=== PATIENT | female | born 1950 | race Caucasian/White ===

== ENCOUNTER → 2016-03-11 | Outpatient (CLI) | payer OTHER ==
--- NOTE | 2016-03-11 17:20 | MA ---
Screening Digital Mammogram Clinical Indications: Routine screening. Technique: Standard cephalocaudal and mediolateral oblique projections are obtained. This examinati on is processed by the [employer] computer aided detection system. Comparison: October 24, 2013; August 04, 2010; and studies dating back to November 23, 2007. Breast density: B; There are scattered areas of fibroglandular density. Findings: CAD was reviewed. No suspicious findings are identified. There are no new masses, new clus ters of microcalcifications, or significant axillary lymphadenopathy. Impression: Negative mammogram. BI-RADS 1. Recommendation: Routine screening is recommended in one year. [facility] will send a result letter to the patient. Negative mammography should not preclude additional workup of a clinically suspicious finding. The patient's information is entered into a reminder system with a target due date for her next mammo gram.
== END ==
LOC: FIMAGING 13:12
DX: Z12.31 Encounter for screening mammogram for malignant neoplasm of breast (principal)
CPT/HCPCS: G0202

== ENCOUNTER 2016-06-18 09:49 | Emergency (ER) | payer OTHER ==
[2016-06-18 09:59] VITALS: O2SAT 96
--- NOTE | 2016-06-18 10:01 | EDPHY ---
HPI/HX/ROS/PE/MDM Narrative: CHIEF COMPLAINT: Disorientation HISTORY OF PRESENT ILLNESS: This patient is a 66 year old woman, arriving by private vehicle, presenting with acute disorientation. She woke her son up this morning, stating "I think I am having a stroke". She reports feeling disoriented and confused. She does not know what day of the week it is. She does not remember what she did 10 minutes ago or how she was feeling this morning. Her son last saw her normal last night before bed. Her saw her acting normal and reading at 0700 this morning and briefly at 0845 this morning when she came in from gardening before he left for work. He felt she was in her normal state of health at these interactions. She called her at 0905, complaining of disorientation and the symptoms, as described above. She denies headache, but reports that "her head feels swirly". She denies difficulty speaking or forming words, extremity weakness or paresthesia. History is limited secondary to patient's condition. REVIEW OF SYSTEMS: Review of systems is slightly limited secondary to the patient's disorientation. However she and her family deny fevers or chills, cough, vomiting, diarrhea. Patient denies any headache, chest pain, abdominal pain, extremity pain, lightheadedness or fainting. PAST MEDICAL HISTORY: Denies history of hypertension, diabetes, arrhythmias, coronary disease, or CVA. She does not believe she is on any medications. SOCIAL HISTORY: . Her son is at bedside. VITAL SIGNS: Reviewed by me GENERAL: Well-developed, well-nourished, resting comfortably in no respiratory distress. Pleasant. HEENT: Atraumatic. Eyes: No icterus, no injection. PERRL, EOMI. Mouth: moist mucous membranes. No erythema or lesions. Neck: supple with no adenopathy. LUNGS: Clear to auscultation bilaterally, no wheezes, rhonchi or rales. CARDIAC: Regular rate and rhythm, no rubs, murmurs or gallops. ABDOMEN: Soft, nontender, nondistended, bowel sounds normal. BACK: No CVA tenderness. EXTREMITIES: No trauma. No edema. Range of motion is normal throughout. NEURO: Alert. Oriented to place and person. She does not know what day, month, or year it is. Cranial nerves II-XII intact. Normal motor and sensation of all four extremities. Normal identification of pen, shoe, hat. Normal identification of her son, who is at bedside. Fluid speech. SKIN: Warm and dry, no rash. PSYCHIATRIC: Normal mentation, no agitation. Portions of this note were transcribed by a medical technologist blood bank. I personally performed a history, physical exam, medical decision making, and confirmed accuracy of information the transcribed note. ED Course: 1000: Patient is acutely disoriented. Last seen normal last night before bed. She is oriented to person and place only. She has no other neurologic deficits on exam. I have classified this patient as a stroke alert. BGL and creatinine is normal on ISTAT. Patient has departed to head CT. 12-lead EKG interpreted by myself demonstrates normal sinus rhythm, rate 62. See formal report in [employer] for interpretation. Noncontrast Head CT per the radiologist shows no acute findings. I consulted with [facility] neurologist, Dr Yun, at 1015. Dr. Iyer has low suspicion for CVA. Recommends stopping the stroke alert and workup the patient for altered mental status. Transient global amnesia is prominent on the list of differentials. Brain MRI ordered. 1230: Patient is still disoriented. Discussed with the patient and family, plan for hospital admission. I consulted with the hospitalist service. Dr. Burns accepts admission. MRI results pending. Brain MRI per the radiologist demonstrates white matter disease, but no evidence of acute infarct. Patient was evaluated in the emergency department by Dr. Burns. Please see her notations. Evidently the patient and her family a prefer not to be discharged. Consultation was held between Dr. Burns and Dr. Nicholson from Neurology. Plan for a carotid ultrasound to be performed while in the emergency department. MDM: After the history was obtained and physical exam performed, the following differential for the patient's altered mental status was considered included but was not limited to hypoglycemia, electrolyte disturbances, intracranial hemorrhage, tumor, drug or alcohol intoxication, stroke, or TIA, or transient global amnesia. - Data Points Laboratory Results: Laboratory Results 06/18/16 09:56 06/18/16 09:56 Medications Given: Discontinued Medications Thiamine HCl 100 mg/ Sodium (Chloride) 101 mls @ 202 mls/hr IV DAILY DEANDRA Stop: 12/15/16 14:29 Last Admin: 06/18/16 16:30 Dose: Not Given General Initial Vital Signs: Initial Vital Signs Temperature (C) 36.8 C 06/18/16 09:55 Heart Rate 74 06/18/16 09:55 Respiratory Rate 16 06/18/16 09:55 Blood Pressure 173/106 H 06/18/16 09:55 O2 Sat (%) 96 06/18/16 09:55 O2 Delivery Mode Room Air Allergies/Adverse Reactions: No Known Allergies Allergy (Unverified 05/09/11 10:37) Home Medications: Medication Instructions Recorded Aspirin [Aspirin EC] 81 mg PO DAILY #30 tablet. 06/18/16 Departure - Departure Disposition: Home, Routine, Self-Care Clinical Impression: Disoriented to time, Disorientation Condition: Fair Instructions: Altered Mental Status (ED), Transient Global Amnesia (ED) Additional Instructions: Begin taking 81 mg aspirin once daily until follow up with neurologist. Return to the emergency department if you develop worsening symptoms of confusion, speech difficulties, word-finding difficulties, numbness or tingling in her arms or legs, weakness, or other concerns. Follow up with Dr. Nicholson as directed. Please contact him and be seen as soon as possible. Referrals: Marlene Morton MD [Primary Care Provider] - As per Instructions Jon Nicholson MD [Medical Doctor] - follow up in 2 weeks (2 weeks for EEG) Prescriptions: Aspirin [Aspirin EC] 81 mg PO DAILY #30 tablet. Report Scribed for: Tracey Roche Report Scribed by: Annette Ramirez Date of Report: 06/18/16 Time of Report: 10:03
[2016-06-18 10:10] LABS: % IMMATURE GRANULYOCYTES 0.2 % (0.0-1.1); ABSOLUTE IMMATURE GRANULOCYTES 0.01 10^3/uL (0.00-0.10); ADD DIFF? NO; ADD MORPH? NO; ADD SCAN? NO; ATYPICAL LYMPHOCYTE FLAG 10 (0-99); FRAGMENT RBC FLAG 0 (0-99); HEMATOCRIT 44.5 % (38.0-47.0); HEMOGLOBIN 15.7 g/dL (12.6-16.3); LEFT SHIFT FLG 0 (0-99); LIPEMIA HEMOLYSIS FLAG 90 (0-99); MEAN CELL HEMOGLOBIN 31.8 pg (27.9-34.1); MEAN CELL HEMOGLOBIN CONCENTR. 35.3 g/dL (32.4-36.7); MEAN CELL VOLUME 90.1 fL (81.5-99.8); MEAN PLATELET VOLUME 8.9 fL (8.7-11.7); PLATELET CLUMPS FLAG 0 (0-99); PLATELET COUNT 250 10^3/uL (150-400); RED BLOOD CELL COUNT 4.94 10^6/uL (4.18-5.33); RED CELL DISTRIBUTION WIDTH 12.6 % (11.5-15.2)
--- NOTE | 2016-06-18 10:15 | CPEKG ---
Heart Rate: 62 RR Interval: 968 P-R Interval: 172 QRSD Interval: 84 QT Interval: 440 QTC Interval: 447 P [place]: 52 QRS [place]: 32 T Wave [place]: -18 EKG Severity - BORDERLINE ECG - EKG Impression: SINUS RHYTHM EKG Impression: BORDERLINE T WAVE ABNORMALITIES Electronically Signed By: Tracey Roche 18-Jun-2016 16:53:16
[2016-06-18 10:19] LABS: INR 0.98 (0.83-1.16); PROTIME(PATIENT) 12.9 SEC (12.0-15.0)
[2016-06-18 10:27] LABS: ANION GAP 13 mEq/L (8-16); CALCIUM 9.9 mg/dL (8.5-10.4); CARBON DIOXIDE 23 mEq/l (22-31); CHLORIDE 108 mEq/L (97-110); CREATININE 0.9 mg/dL (0.6-1.0); GLOMERULAR FILTRATION RATE > 60; GLUCOSE 97 mg/dL (70-100); POTASSIUM 3.8 mEq/L (3.5-5.2); SODIUM 144 mEq/L (134-144)
[2016-06-18 10:39] LABS: TROPONIN I < 0.012 ng/mL (0-0.034)
[2016-06-18] MEDS ORDERED: GADOBUTROL 10 ML VIAL IVP ONE (11:20)
[2016-06-18] MEDS ORDERED: ACETAMINOPHEN 325 MG TAB PO PRN (14:10)
[2016-06-18] MEDS ORDERED: ONDANSETRON 4 MG/2 ML VIAL IVP PRN (14:10)
[2016-06-18] MEDS ORDERED: ONDANSETRON DISINTEGRATING 4 MG TAB PO PRN (14:10)
[2016-06-18] MEDS ORDERED: THIAMINE HCL 100 MG in NS 100 ML IV SCH (14:30)
[2016-06-18 14:53] LABS: COLOR PALE YELLOW; LEUKOCYTE ESTERASE,URINE NEGATIVE (NEGATIVE); NITRITE,URINE NEGATIVE (NEGATIVE)
--- NOTE | 2016-06-18 15:48 | GHP ---
[f rep st] HISTORY AND PHYSICAL DATE OF ADMISSION: 06/18/2016 CHIEF COMPLAINT: Transient global amnesia. HISTORY OF PRESENT ILLNESS: The patient is a 66-year-old female with no significant past medical history, presenting with sudden onset of memory loss and confusion this morning. Some of the history is provided by her and son, Agusto. saw her gardening this morning. She brought sung in to put in a vase. She appeared normal to him at that time, and he left for work. She called him and was not making sense and saying that she felt confused. She denies any slurred speech, focal weakness. No fevers, chills or sweats. No nausea, vomiting, or diarrhea. No headaches. No numbness or tingling. Right now, she says she feels swirly in her head and disoriented. The last event she remembers yesterday as being at her friend [place] until about 7 p.m. When prompted by her , she does recall watching [employer] TV series on TV. Her states there have been increased stressors as her best friend's 22- year-old son has been missing for 11 days and she has been involved in the search. She also missed a shift last week at [employer], because she forgot. In the Emergency Room, the patient cannot recall the president, year, or date. She knows the month. She is supposed to start a new job at [employer] tomorrow and she does not remember being hired 3 weeks ago. REVIEW OF SYSTEMS: A complete 10-point Review of Systems is negative except as noted in HPI. PAST MEDICAL HISTORY: Episode of bradycardia and hypertension for which she was admitted to [facility] last year, intermittent vertigo. PAST SURGICAL HISTORY: 1. Cholecystectomy. 2. Tonsillectomy. FAMILY HISTORY: 1. Mother with TIA. 2. Father with a heart attack at age 45 and cardiac bypass. SOCIAL HISTORY: 1. Lives in [place], , her son and grandson live with them, works at [employer], supposed to start a new job at [employer] tomorrow. 2. Alcohol 1 to 3 glasses of wine 3 to 4 times a week. Stated she had a glass last night. 3. Denies any illicit drugs or tobacco. ALLERGIES: No known drug allergies. MEDICATIONS: None. No herbal or [id number]-bbqkufz medicines. PHYSICAL EXAMINATION: VITAL SIGNS: Temperature 36.8, blood pressure 173/106, at admission, now 162/73, heart rate 70s, respirations 16, 96% on room air. GENERAL: Patient is sitting up in bed, no acute distress. Smiling. HEENT: PERRLA. EOMI. Oropharynx clear. CV: Regular rate and rhythm. No murmurs, gallops, or rubs. LUNGS: Clear to auscultation bilaterally. ABDOMEN: Soft, nontender, nondistended. Positive bowel sounds. : No suprapubic or CVA tenderness. MUSCULOSKELETAL: 5/5 upper and lower extremity strength. NEURO: CN 2 through 12 intact. No pronator drift. Normal sensation to touch. Normal cerebellar function, xkuceq-pl-mewd testing. PSYCH: Alert to month and hospital, not year, date or president. She is not recalling anything since yesterday evening. LABS: WBC 4, hemoglobin 15, hematocrit 44, platelets 250. Coags are within normal. Sodium 144, potassium 3.8, chloride 108, carbon dioxide 23, anion gap 13, BUN 17, creatinine 0.9. Troponin less than 0.012. A TSH is pending. Urine tox and urinalysis are pending. EKG personally reviewed by me. Normal sinus rhythm. ST flattening in V4 through V6. Chest x-ray personally reviewed by me. No edema, effusion or evidence of opacity. Head CT negative for hemorrhage or other acute abnormality. Brain MRI: Negative for hemorrhage, mass lesion or acute cortical ischemia. Rather extensive white matter T2 hyperintensity lesions bilaterally related to small vessel disease. ASSESSMENT AND PLAN: 1. Transient global amnesia. Differential is broad including electrolyte abnormalities, TIA, stroke, infection. She is afebrile without leukocytosis. Denies any infectious symptoms. CT head and MRI brain are negative with normal neuro exam. Normal electrolytes. TSH, UA and U tox are pending. I could consider stress induced as has recently been hired for a new job, her best friend's son has gone missing in the last 2 weeks. The patient was evaluated by Nicholas Castillo and had low suspicion for stroke. I spoke with Dr. Nicholson who suggested carotid U/S and she can FU in clinic for EEG. 2. Accelerated hypertension. Diastolic was elevated, but now better, suspect secondary to stress. BP check outpatient. 3. DVT prophylaxis, ambulatory. 4. Patient warrants observation admission given transient global amnesia. Awaiting call from Neurology. /[id number]/MODL MTDD
[2016-06-18 17:22] VITALS: BP 157/90; PULSE 63; RESP 18; TEMP 98.8
--- NOTE | 2016-06-18 17:47 | GDS ---
[f rep st] DISCHARGE SUMMARY DISCHARGE DIAGNOSES: 1. Transient global amnesia. 2. Hypertension. HPI: The patient is a 66-year-old female, with no significant past medical history, presenting with sudden onset of memory loss and confusion this morning. Please see full H and P dated today for full details. ASSESSMENT AND PLAN: 1. Transient global amnesia: Differential includes seizure, TIA, infection, or electrolyte abnormality. The patient had a negative CT head, brain MRI, and carotid ultrasound. I did speak with Dr. Nicholson with Neurology, who will see patient as an outpatient and do an EEG. Another consideration would be stress induced given increased stressors with work and a friend's situation. UA was negative, and there was no evidence of electrolyte abnormality. 2. Accelerated hypertension: Diastolic was greater than 100 here, but now 70. The patient has been admitted to [facility] prior with hypertension, but she is not on any medication. I recommend that she have a followup blood pressure with her PCP. 3. Small-vessel disease: This was demonstrated on brain MRI. I would recommend starting a low-dose aspirin. DISPOSITION: The patient is stable for discharge. NEW MEDICATIONS: Baby aspirin. FOLLOWUP: Dr. Nicholson with Neurology for EEG. /[id number]/MODL MTDD
== END 2016-06-18 17:29 | disposition home or self-care (01) ==
LOC: UNDOADMOB 12:33
DX: G45.4 Transient global amnesia (principal)
CPT/HCPCS: 70450; 70553; 71010; 93005; 93880; 99285; A9585; J3411; 82947-QW

== ENCOUNTER → 2016-07-12 | Outpatient (CLI) | payer OTHER ==
--- NOTE | 2016-07-13 10:20 | CPEEG ---
[f rep st] ELECTROENCEPHALOGRAM 4-HOUR VIDEO ELECTROENCEPHALOGRAM. DATE OF STUDY: 07/12/2016 DATE OF INTERPRETATION: 07/12/2016. INTERPRETATION: This 4-hour video EEG recording is normal. There were no potentially epileptogenic abnormalities present in the awake or sleep recordings. During the video EEG monitoring session, t he patient did not have any clinical events. REPORT: This 4-hour video EEG contains 9 Hz alpha rhythm to the posterior head regions. There was no abnormal activation at rest, during photic stimulation or hyperventilation. The patient became d rowsy and fell asleep during the study. There was no abnormal activation during drowsiness, sustain ed sleep, or during times of arousal. During the EEG monitoring session, the patient did not have a ny clinical events. /[id number]/MODL
== END ==
LOC: FCPNEURO 08:33
PROVIDERS: ATTEND Psychiatry & Neurology Neurology
DX: G45.4 Transient global amnesia (principal)

== ENCOUNTER 2016-08-02 11:20 | Observation (INO) | payer OTHER ==
--- NOTE | 2016-08-02 11:32 | CPEKG ---
Heart Rate: 53 RR Interval: 1132 P-R Interval: 164 QRSD Interval: 92 QT Interval: 468 QTC Interval: 440 P [place]: 38 QRS [place]: 17 T Wave [place]: 49 EKG Severity - NORMAL ECG - EKG Impression: SINUS RHYTHM Electronically Signed By: Rupal Guzmán 02-Aug-2016 15:43:43
[2016-08-02] MEDS ORDERED: NS 500 ML IV ONE (11:37)
[2016-08-02] MEDS ORDERED: ASPIRIN 81 MG CHEWABLE TAB PO ONE (11:37)
[2016-08-02 11:45] LABS: ADD DIFF? NO; ADD MORPH? NO; ADD SCAN? NO; ATYPICAL LYMPHOCYTE FLAG 10 (0-99); FRAGMENT RBC FLAG 0 (0-99); HEMOGLOBIN 14.6 g/dL (12.6-16.3); LEFT SHIFT FLG 0 (0-99); LIPEMIA HEMOLYSIS FLAG 90 (0-99); MEAN CELL HEMOGLOBIN 31.9 pg (27.9-34.1); MEAN CELL HEMOGLOBIN CONCENTR. 34.8 g/dL (32.4-36.7); MEAN CELL VOLUME 91.7 fL (81.5-99.8); PLATELET CLUMPS FLAG 10 (0-99); PLATELET COUNT 238 10^3/uL (150-400); RED BLOOD CELL COUNT 4.58 10^6/uL (4.18-5.33); RED CELL DISTRIBUTION WIDTH 12.9 % (11.5-15.2)
[2016-08-02 11:53] LABS: APTT 29.4 SEC (23.0-38.0); INR 1.05 (0.83-1.16); PROTIME(PATIENT) 13.6 SEC (12.0-15.0)
--- NOTE | 2016-08-02 11:57 | EDPHY ---
H & P Time Seen by Provider: 08/02/16 11:37 HPI/ROS: HPI Chest pain, jaw pain, sweating. 66-year-old female by private vehicle from work. She was standing at work. She was not under any strenuous activity, she reports that 0.5 hour prior to arrival she suddenly started sweating profusely. This was associated with a vague aching and discomfort in her right chest which radiated to her right shoulder blade. This was then followed by pain in her right jaw. This lasted about 15-20 minutes and then resolved. She feels much better now that she is at the hospital. She does not have a prior history of coronary artery disease. She has had episodes of symptoms similar to this in the past but not nearly as severe. She had some mild associated shortness of breath with this but this has resolved as well. ROS: Constitutional: No fever, no chills. As above. Eyes: No discharge. No changes in vision. ENT: No sore throat. No nasal congestion or rhinorrhea. Respiratory: No cough. As above. Cardiac: As above, no palpitations. Gastrointestinal: No abdominal pain, no vomiting, no diarrhea. Genitourinary: No hematuria. No dysuria or increased frequency with urination. Musculoskeletal: No back pain. As above. Skin: No rashes. Neurological: No headache. No focal weakness or altered sensation. Past medical history: Transient global amnesia, bradycardia, cholecystectomy. Social history: Nonsmoker. Here by herself. Physical Exam: General Appearance: Alert, no distress. Moderately obese. This patient is responding to questions appropriately and in full sentences. This patient appears well-hydrated and well-nourished. Eyes: Pupils equal and round no pallor or injection. No lid edema, erythema or injection. Respiratory: There are no retractions, lungs are clear to auscultation with good air movement bilaterally. Cardiovascular: Regular rate and rhythm. No murmur. Gastrointestinal: Abdomen is soft and nontender, no masses, bowel sounds normal. No focal tenderness at McBurney's point. No Sandoval sign. Neurological: Motor sensory function is grossly intact. Cranial nerves are normal. Gait is normal. Skin: Warm and dry, no rashes. Musculoskeletal: Neck is supple and nontender. Extremities are symmetrical. All joints range without pain or impingement. Psychiatric: No agitation. No depression. Database: EKG: EKG time is 11:29 a.m.; EKG shows a narrow complex normal sinus rhythm with a ventricular rate of 53. The RI, QRS, QT intervals are within normal limits. There are no ST-T wave changes indicative of ischemic or injury pattern. No evidence of right heart strain. Interpreted by me. Imaging: Chest x-ray PA and lateral; the cardiac mediastinal silhouette is unremarkable. No evidence of infiltrate or pneumothorax. No acute cardiopulmonary disease process noted. Interpreted by me. Procedures: Emergency department course: IV placed. She was placed on a dust mixer. She was given 324 mg of chewed aspirin. EKG and chest x-ray obtained. Plan for observation admission discussed with her. Appropriate blood work ordered. 12:10 p.m., discussed case with hospitalist. Patient accepted for observation telemetry admission to Dr. Kristina Ramos. 12:15 p.m., re-evaluated patient. Chest pain-free. Resting comfortably. Results of cardiac workup discussed with her. Plan for admission to telemetry observation reviewed. All of her questions were answered. She was admitted in stable and improved condition. Differential Diagnosis: The differential diagnosis on this patient includes but is not limited to acute coronary syndrome, anxiety reaction, myocardial infarction. This represents a partial list of diagnoses considered. These considerations are based on history , physical exam, past history, reassessment and diagnostic testing. Smoking Status: Never smoked Constitutional: Initial Vital Signs Temperature (C) 36.4 C 08/02/16 11:27 Heart Rate 62 08/02/16 11:27 Respiratory Rate 18 08/02/16 11:27 Blood Pressure 166/92 H 08/02/16 11:27 O2 Sat (%) 96 08/02/16 11:27 O2 Delivery Mode Room Air Allergies/Adverse Reactions: No Known Allergies Allergy (Verified 08/02/16 11:27) Home Medications: Medication Instructions Recorded Aspirin [Aspirin EC] 81 mg PO DAILY #30 tablet. 06/18/16 Medical Decision Making - Data Points Laboratory Results: Laboratory Results 08/02/16 11:36 08/02/16 11:36 08/02/16 08/02/16 08/02/16 11:36 11:36 11:36 WBC 5.34 10^3/uL 10^3/uL (3.80-9.50) RBC 4.58 10^6/uL 10^6/uL (4.18-5.33) Hgb 14.6 g/dL g/dL (12.6-16.3) Hct 42.0 % % (38.0-47.0) MCV 91.7 fL fL (81.5-99.8) MCH 31.9 pg pg (27.9-34.1) MCHC 34.8 g/dL g/dL (32.4-36.7) RDW 12.9 % % (11.5-15.2) Plt Count 238 10^3/uL 10^3/uL (150-400) MPV 9.0 fL fL (8.7-11.7) Neut % (Auto) 45.3 % % (39.3-74.2) Lymph % (Auto) 44.2 % % (15.0-45.0) [place] % (Auto) 8.6 % % (4.5-13.0) Eos % (Auto) 1.5 % % (0.6-7.6) Baso % (Auto) 0.4 % % (0.3-1.7) Nucleat RBC Rel Count 0.0 % % (0.0-0.2) Absolute Neuts (auto) 2.42 10^3/uL 10^3/uL (1.70-6.50) Absolute Lymphs (auto) 2.36 10^3/uL 10^3/uL (1.00-3.00) Absolute Monos (auto) 0.46 10^3/uL 10^3/uL (0.30-0.80) Absolute Eos (auto) 0.08 10^3/uL 10^3/uL (0.03-0.40) Absolute Basos (auto) 0.02 10^3/uL 10^3/uL (0.02-0.10) Absolute Nucleated RBC 0.00 10^3/uL 10^3/uL (0-0.01) Immature Gran % 0.0 % % (0.0-1.1) Immature Gran # 0.00 10^3/uL 10^3/uL (0.00-0.10) PT 13.6 SEC SEC (12.0-15.0) INR 1.05 (0.83-1.16) APTT 29.4 SEC SEC (23.0-38.0) Sodium 138 mEq/L mEq/L (134-144) Potassium 4.0 mEq/L mEq/L (3.5-5.2) Chloride 107 mEq/L mEq/L (97-110) Carbon Dioxide 19 mEq/l L mEq/l (22-31) Anion Gap 12 mEq/L mEq/L (8-16) BUN 23 mg/dL mg/dL (7-23) Creatinine 0.8 mg/dL mg/dL (0.6-1.0) Estimated GFR > 60 Glucose 105 mg/dL H mg/dL (70-100) Calcium 9.5 mg/dL mg/dL (8.5-10.4) Creatine Kinase 102 IU/L IU/L (0-156) CK-MB (CK-2) Fraction 0.83 ng/mL ng/mL (0-3.19) Troponin I < 0.012 ng/mL ng/mL (0-0.034) Medications Given: Discontinued Medications Aspirin (Aspirin) 324 mg PO EDNOW ONE Stop: 08/02/16 11:38 Last Admin: 08/02/16 11:47 Dose: 324 mg Departure - Departure Disposition: [facility] Inpatient Acute Clinical Impression: Chest pain Referrals: Marlene Morton MD [Primary Care Provider] - As per Instructions
[2016-08-02 12:02] LABS: ANION GAP 12 mEq/L (8-16); CALCIUM 9.5 mg/dL (8.5-10.4); CARBON DIOXIDE 19 mEq/l (22-31); CHLORIDE 107 mEq/L (97-110); CREATININE 0.8 mg/dL (0.6-1.0); GLOMERULAR FILTRATION RATE > 60; GLUCOSE 105 mg/dL (70-100); SODIUM 138 mEq/L (134-144)
[2016-08-02 12:10] LABS: CREATINE KINASE-MB FRACTION 0.83 ng/mL (0-3.19); TROPONIN I < 0.012 ng/mL (0-0.034)
[2016-08-02] MEDS ORDERED: ONDANSETRON DISINTEGRATING 4 MG TAB PO PRN (12:21)
[2016-08-02] MEDS ORDERED: ONDANSETRON 4 MG/2 ML VIAL IVP PRN (12:21)
[2016-08-02] MEDS ORDERED: ACETAMINOPHEN 325 MG TAB PO PRN (12:21)
--- NOTE | 2016-08-02 13:08 | PDCPHP ---
History and Physical Chief Complaint: chest pain, diaphoresis - History of Present Illness This is a 66 yo,White,F 66 yo female with no significant past medical history, but father with h/o PA at age 45, presents to ED with chest pressure and diaphoresis. She was working at a [employer] when she suddenly felt hot, flushed and sweaty. She endorsed chest pressure with some radiation to her arms. No SOB. She is a non- smoker. She denies a h/o hypertension, though review of records reveal multiple elevated BP's and I suspect she has undiagnosed hypertension. She was evaluated for chest pain in 12/2015 with a low probability exercise stress test. She is chest pain free and her symptoms are resolved at the time of my evaluation. Cardiac Risk Factors: hypertension (>140/90), family history of premature CAD, age > 65 History Information - Allergies/Home Medication List Allergies/Adverse Reactions: No Known Allergies Allergy (Verified 08/02/16 11:27) I have personally reviewed and updated: family history, medical history, social history, surgical history - Past Medical History Additional medical history: intermittent vertigo, h/o global amnesia, ? hypertension - Surgical History Reports: cholecystectomy Additional surgical history: tonsillectomy - Family History Positive for: father with history of CAD younger than 55 - Social History Smoking Status: Never smoked Alcohol Use: Occasionally Drug Use: None Additional social history: , works at [employer] at the [employer]. Review of Systems ROS: 10pt was reviewed & negative except for what was stated in HPI & below RUPAL Risk Evaluation age greater or equal to 65: yes greater or equal to 3 CAD risk factors: no known CAD(stenosis greater or eqaul to 50%): no ASA use in past 7 days: yes severe angina(greater or equal to 2 episodes in 24hrs): no EKG ST changes greater or equal to 0.5mm: no positive cardiac marker: no Total Score: 2 RUPAL Score: 8.3% risk Physical Exam Temp Pulse Resp BP Pulse Ox 36.4 C 62 18 166/92 H 96 08/02/16 11:27 08/02/16 11:27 08/02/16 11:27 08/02/16 11:27 08/02/16 11:27 Constitutional: no apparent distress Eyes: PERRL Ears, Nose, Mouth, Throat: moist mucous membranes Cardiovascular: regular rate and rhythym, no murmur, rub, or gallop Respiratory: no respiratory distress, clear to auscultation Gastrointestinal: normoactive bowel sounds, soft, non-tender abdomen Skin: warm Musculoskeletal: full muscle strength Neurologic: AAOx3 Psychiatric: interacting appropriately Lab Data & Imaging Review 08/02/16 11:36 08/02/16 11:36 WBC 5.34 10^3/uL (3.80-9.50) 08/02/16 11:36 RBC 4.58 10^6/uL (4.18-5.33) 08/02/16 11:36 Hgb 14.6 g/dL (12.6-16.3) 08/02/16 11:36 Hct 42.0 % (38.0-47.0) 08/02/16 11:36 MCV 91.7 fL (81.5-99.8) 08/02/16 11:36 MCH 31.9 pg (27.9-34.1) 08/02/16 11:36 MCHC 34.8 g/dL (32.4-36.7) 08/02/16 11:36 RDW 12.9 % (11.5-15.2) 08/02/16 11:36 Plt Count 238 10^3/uL (150-400) 08/02/16 11:36 MPV 9.0 fL (8.7-11.7) 08/02/16 11:36 Neut % (Auto) 45.3 % (39.3-74.2) 08/02/16 11:36 Lymph % (Auto) 44.2 % (15.0-45.0) 08/02/16 11:36 [place] % (Auto) 8.6 % (4.5-13.0) 08/02/16 11:36 Eos % (Auto) 1.5 % (0.6-7.6) 08/02/16 11:36 Baso % (Auto) 0.4 % (0.3-1.7) 08/02/16 11:36 Nucleat RBC Rel Count 0.0 % (0.0-0.2) 08/02/16 11:36 Absolute Neuts (auto) 2.42 10^3/uL (1.70-6.50) 08/02/16 11:36 Absolute Lymphs (auto) 2.36 10^3/uL (1.00-3.00) 08/02/16 11:36 Absolute Monos (auto) 0.46 10^3/uL (0.30-0.80) 08/02/16 11:36 Absolute Eos (auto) 0.08 10^3/uL (0.03-0.40) 08/02/16 11:36 Absolute Basos (auto) 0.02 10^3/uL (0.02-0.10) 08/02/16 11:36 Absolute Nucleated RBC 0.00 10^3/uL (0-0.01) 08/02/16 11:36 Immature Gran % 0.0 % (0.0-1.1) 08/02/16 11:36 Immature Gran # 0.00 10^3/uL (0.00-0.10) 08/02/16 11:36 PT 13.6 SEC (12.0-15.0) 08/02/16 11:36 INR 1.05 (0.83-1.16) 08/02/16 11:36 APTT 29.4 SEC (23.0-38.0) 08/02/16 11:36 Sodium 138 mEq/L (134-144) 08/02/16 11:36 Potassium 4.0 mEq/L (3.5-5.2) 08/02/16 11:36 Chloride 107 mEq/L (97-110) 08/02/16 11:36 Carbon Dioxide 19 mEq/l (22-31) L 08/02/16 11:36 Anion Gap 12 mEq/L (8-16) 08/02/16 11:36 BUN 23 mg/dL (7-23) 08/02/16 11:36 Creatinine 0.8 mg/dL (0.6-1.0) 08/02/16 11:36 Estimated GFR > 60 08/02/16 11:36 Glucose 105 mg/dL (70-100) H 08/02/16 11:36 Calcium 9.5 mg/dL (8.5-10.4) 08/02/16 11:36 Creatine Kinase 102 IU/L (0-156) 08/02/16 11:36 CK-MB (CK-2) Fraction 0.83 ng/mL (0-3.19) 08/02/16 11:36 Troponin I < 0.012 ng/mL (0-0.034) 08/02/16 11:36 Visualized and Interpreted Chest x-ray results: Yes Chest X-Ray results: no infiltrate EKG Interpretation: Positive for: normal sinsus rhythm Assessment and Plan Assessment: Chest pain (Acute) - onset at rest, atypical. Low suspicion for ACS, RUPAL 2. Cardiac risk factors include age, htn (not previously diagnosed), father with PHD. She had low probability exercise stress test in 12/2015. EKG is non- ischemic. Initial trop negative. Query if her symptoms were related to a hot flash. -trend trop -repeat EKG to eval for evolutionary changes -ASA, BB -check lipid status -will discuss further stress testing with Cards in am -check TSH Hypertension - Most of her BP's are elevated on prior visits. -start Metoprolol Full code DVT PPLX - SCD's, consider Lovenox if prolonged hospitalization Dispo - obs Plan: The patient will be placed in observation due to concerns for Acute Coronary Syndrome. * continuous telemetry to monitor for ST segment changes * monitor vital signs every 4 hours * morphine sulfate IV and nitroglycerin sublingual as needed for chest pain * repeat EKG in 6 hours to monitor for changes that would suggest ischemia or infarction * repeat EKG as needed for recurrent chest pain * repeat troponin in 4-6 hours after onset of chest pain * Arrange for [inpatient][outpatient]stress test once chest pain is resolved, repeat troponin and EKG are negative, and the patient is symptom free for greater than 6 hours from the onset of pain * If the patient develops dynamic EKG changes consistent with ischemia/ infarction, troponin elevation, or has an abnormal stress test the patient will be treated for acute coronary syndrome as clinically indicated. * []
[2016-08-02] MEDS: METOPROLOL TARTRATE 25 MG TAB PO SCH ×2 (14:50→22:14)
--- NOTE | 2016-08-02 15:32 | CPEKG ---
Heart Rate: 51 RR Interval: 1176 P-R Interval: 172 QRSD Interval: 88 QT Interval: 484 QTC Interval: 446 P [place]: 21 QRS [place]: 32 EKG Severity - BORDERLINE ECG - EKG Impression: SINUS RHYTHM EKG Impression: BORDERLINE T ABNORMALITIES, LATERAL LEADS Electronically Signed By: Deven Bolanos 03-Aug-2016 07:46:09
[2016-08-03 05:03] LABS: ANION GAP 11 mEq/L (8-16); CARBON DIOXIDE 21 mEq/l (22-31); CHLORIDE 110 mEq/L (97-110); CHOLESTEROL 178 mg/dL (140-220); CHOLESTEROL/HDL RATIO 2.92 RATIO (1.00-4.44); CREATININE 0.7 mg/dL (0.6-1.0); GLOMERULAR FILTRATION RATE > 60; GLUCOSE 100 mg/dL (70-100); HIGH DENSITY LIPOPROTEIN 61 mg/dL (40-85); LDL/HDL RATIO 1.43 RATIO (1.00-3.22); LOW DENSITY LIPOPROTEIN 87 mg/dL (80-100); NON-HIGH DENSITY LIPOPROTEIN 117 mg/dL (90-129); POTASSIUM 4.4 mEq/L (3.5-5.2); SODIUM 142 mEq/L (134-144); TRIGLYCERIDE 153 mg/dL (35-135); VERY LOW DENSITY LIPOPROTEINS 30 mg/dL (8-25)
[2016-08-03 07:19] VITALS: O2SAT 96
[2016-08-03] MEDS: METOPROLOL TARTRATE 25 MG TAB PO SCH (08:27)
[2016-08-03] MEDS ORDERED: ASPIRIN EC 81 MG TAB PO SCH (09:00)
--- NOTE | 2016-08-03 09:42 | CPEKG ---
Heart Rate: 49 RR Interval: 1224 P-R Interval: 164 QRSD Interval: 86 QT Interval: 456 QTC Interval: 412 P [place]: 54 QRS [place]: 70 T Wave [place]: -8 EKG Severity - BORDERLINE ECG - EKG Impression: SINUS BRADYCARDIA EKG Impression: BORDERLINE T WAVE ABNORMALITIES Electronically Signed By: Deven Bolanos 03-Aug-2016 10:22:18
[2016-08-03 12:00] VITALS: BP 128/86; PULSE 46; RESP 16; TEMP 98
--- NOTE | 2016-08-03 22:12 | GDS ---
[f rep st] DISCHARGE SUMMARY DISCHARGE DIAGNOSES: 1. Chest pain, resolved. 2. Elevated blood pressure. 3. Bradycardia, in the setting of beta jeb. 4. 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 HISTORY: For details, please see the history and physical dated August 02, 2016. In brief, the patien maria ines is a 66-year-old female, with no significant past medical history, but a family history of prematu re heart disease in her father, presented to the emergency department with chest pain and diaphoresi s. She described feeling beet red and sweaty while working at a [employer]. In the midst of thi s, she developed some chest pressure. These symptoms resolved after approximately 90 seconds. Give n her cardiac risk factors, she was admitted to the hospital for further evaluation. HOSPITAL COURSE: Patient admitted to the telemetry unit. She had no abnormal events on telemetry. She had negative troponins x3. She did have some very minimal T-wave inversions in her anterolater al leads, though this is unchanged from the evening prior to the morning of discharge. She had no r ecurrent chest pain. She was given an aspirin, and started on a beta jeb on admission; however, she had bradycardia into the 40s, and this was discontinued. She had an exercise stress test perfo rmed in December 2014, which was a low risk for a cardiovascular event. I discussed the case with Marilee felix, and CT coronary calcium score was recommended for further risk stratification. This reve aled a small burden of calcified plaque, with a score of 16, indicating a low probability of coronar y artery disease, with an estimated annual event rate of 0.2%. Incidentally, she had a minimally di lated ascending aorta of 4.1 cm, and should have routine surveillance in the outpatient setting. Ov beba, I do not think her symptoms are secondary to a cardiac etiology. It sounds somewhat consiste nt with a hot flash, and I will defer further workup of potential hot flashes to her primary care pr maria. She has previously used Estroven and estrogen supplement for postmenopausal symptoms, thoug h has discontinued these over the past several months. She did have some elevated blood pressures on arrival, though these trended down to the 130s/70s, an d her blood pressure at discharge is 128/86. She will need close primary care followup to recheck h er blood pressure, and determine if she needs further antihypertensive treatment. DISPOSITION: Patient is discharged home in stable condition. FOLLOWUP: Patient is to follow up with her primary care, Dr. Marlene Morton. DISCHARGE MEDICATIONS: Please see [facility] for complete updated outpatient medication list. She wi ll continue her daily baby aspirin. There are no new medications at discharge. /[id number]/MODL
== END 2016-08-03 13:15 | disposition home or self-care (01) ==
LOC: F2W 14:20
PROVIDERS: ADMIT Hospitalist; ATTEND Hospitalist
DX: R07.9 Chest pain, unspecified (principal); R03.0 Elevated blood-pressure reading, without diagnosis of hypertension; R00.1 Bradycardia, unspecified; I77.819 Aortic ectasia, unspecified site
CPT/HCPCS: 71010; 71250; 75571; 93005; 99285; G0378

== ENCOUNTER → 2017-10-24 | Outpatient (CLI) | payer OTHER, MEDICARE | LOC: BHFA 13:00 | PROVIDERS: ATTEND Internal Medicine Cardiovascular Disease | DX: R94.31 Abnormal electrocardiogram [ECG] [EKG] (principal) | CPT/HCPCS: 78452; 93017; A9500; J2785 ==

== ENCOUNTER → 2017-10-26 | Outpatient (CLI) | payer OTHER, MEDICARE | LOC: BHFA 15:00 | PROVIDERS: ATTEND Internal Medicine Cardiovascular Disease | DX: R94.31 Abnormal electrocardiogram [ECG] [EKG] (principal); R42 Dizziness and giddiness ==

== ENCOUNTER → 2018-05-09 | Outpatient (CLI) | payer OTHER, MEDICARE | LOC: FIMAGING 13:30 | PROVIDERS: ATTEND Internal Medicine | DX: Z12.31 Encounter for screening mammogram for malignant neoplasm of breast (principal); Z80.3 Family history of malignant neoplasm of breast ==